=== PATIENT | female | born 1955 | race African-American/Black ===

== ENCOUNTER 2024-11-27 21:19 | Emergency (ER) | payer MEDICARE ==
[~2024-11-27] VITALS: Ht 170.2 cm; Wt 79.0 kg
[2024-11-27 21:35] VITALS: TEMP 36.8; O2SAT 99
[2024-11-27] MEDS: HYDROCODONE/ACETAMINOPHEN 5/325MG TABLET PO ONE (23:48)
[2024-11-28 00:14] LABS: POTASSIUM 4.6 mEq/L (3.5-5.1)
[2024-11-28 00:15] LABS: CALCIUM 9.3 mg/dL (8.7-10.4)
[2024-11-28 00:19] LABS: CREATININE 2.4 mg/dL (0.6-1.0); EOSINOPHILS % 3.5 % (0.0-5.0); HEMATOCRIT. 25.2 % (36.0-48.0); HEMOGLOBIN. 8.3 g/dL (12.0-16.0); LYMPHOCYTES % 36.8 % (20.0-50.0); MEAN CORPUSCULAR HEMOGLOBIN 27.9 pg (28.0-32.0); MEAN CORPUSCULAR HGB CONC 32.9 g/dL (31.0-37.0); MEAN CORPUSCULAR VOLUME 84.7 fL (81.0-99.0); MEAN PLATELET VOLUME 10.1 fl (7.4-10.4); MONOCYTES % 6.2 % (2.0-8.0); NEUTROPHILS % 52.5 % (40.0-76.0); PLATELET 203 x1000/uL (130-400); RED BLOOD CELL COUNT 2.98 mill/uL (4.2-5.4); RED CELL DISTRIBUTION WIDTH 14.3 % (11.6-14.6); WHITE BLOOD COUNT 6.1 x1000/uL (4.5-11.0)
[2024-11-28] MEDS ORDERED: LIDO700A30 TP (00:31)
[2024-11-28] MEDS ORDERED: ACET-2708 MT (00:31)
[2024-11-28 01:21] VITALS: BP 170/89; PULSE 90; RESP 12; O2SAT 97
== END 2024-11-28 01:24 | disposition home or self-care (01) ==
LOC: ER 21:19
DX: M25.552 Pain in left hip (principal); M25.551 Pain in right hip; I12.9 Hypertensive chronic kidney disease with stage 1 through stage 4 chronic kidney disease, or unspecified chronic kidney disease; E11.22 Type 2 diabetes mellitus with diabetic chronic kidney disease; N18.9 Chronic kidney disease, unspecified; E78.00 Pure hypercholesterolemia, unspecified; D63.1 Anemia in chronic kidney disease; X58.XXXA Exposure to other specified factors, initial encounter; Y93.89 Activity, other specified; Y92.89 Other specified places as the place of occurrence of the external cause; Y99.8 Other external cause status
CPT/HCPCS: 36415; 73522; 80048; 85025; 86850; 86900; 99284